=== PATIENT | female | born 1970 | race Caucasian/White ===

== ENCOUNTER → 2020-12-18 | Outpatient (CLI) | payer OTHER ==
[~2020-12-18] MED LIST: ANUSOL-HC CREAM30 GM PR; ATORVASTATIN CA40 MG PO; BUPRENORPHIN-N1 EACH SL; CALCIUM PO; CYCLOBENZAPRINE5 MG PO; FLEXERIL 10 MG10 MG PO; HABITROL 21 MG P1 EA TOP; HAIR, SKIN AND1 EAC3 PO; IBUPROFEN800 MG PO; LOPRESSOR 25 MG25 MG PO; LOVENOX SY80 MG/0.8 SQ; LOVENOX120 MG/0.8 SC; OMEPRAZOLE20 MG PO; ROPINIROLE HC0.25 MG PO; VENTOLIN HFA 66.7 GM INH; VITAMIN D250000 UNIT PO; VITAMIN D5000 UNIT PO
== END ==
LOC: MAMO 07-10 14:00
DX: Z12.31 Encounter for screening mammogram for malignant neoplasm of breast (principal)
CPT/HCPCS: 77063; 77067

== ENCOUNTER 2021-11-19 09:26 | Emergency (ER) | payer OTHER ==
[2021-11-19] MEDS ORDERED: CEPHALEXIN500 M1 PO (22:11)
[2021-11-19] MEDS ORDERED: PREDNISONE 20 M20 MG PO (22:11)
== END 2021-11-19 13:58 | disposition left against medical advice (07) ==
LOC: ER1 09:26
DX: Z53.21 Procedure and treatment not carried out due to patient leaving prior to being seen by health care provider (principal)

== ENCOUNTER 2021-11-19 16:46 | Emergency (ER) | payer OTHER ==
[2021-11-19 18:39] LABS: HEMOGLOBIN 14.1 gm/dl (12.3-15.3); RED BLOOD COUNT 4.54 M/UL (4.00-5.10); WHITE BLOOD COUNT 11.1 K/UL (4.5-11.0)
[2021-11-19 18:59] LABS: BUN/CREATININE RATIO 21 (0-10)
[2021-11-19] MEDS ORDERED: PREDNISONE 20 M20 MG PO (22:11)
[2021-11-19] MEDS ORDERED: CEPHALEXIN500 M1 PO (22:11)
== END 2021-11-19 22:20 | disposition home or self-care (01) ==
LOC: ER1 16:46
PROVIDERS: Physician Assistant
DX: L73.9 Follicular disorder, unspecified (principal); F17.200 Nicotine dependence, unspecified, uncomplicated; Z86.718 Personal history of other venous thrombosis and embolism; Z86.711 Personal history of pulmonary embolism
CPT/HCPCS: 80053; 85025; 85379; 93971; 99284; Q9967

== ENCOUNTER → 2021-12-18 | Outpatient (CLI) | payer OTHER ==
[~2021-12-18] MED LIST changes: +CEPHALEXIN500 M1 PO; +PREDNISONE 20 M20 MG PO
== END ==
LOC: EXRD 12:42
DX: D68.62 Lupus anticoagulant syndrome (principal); R19.5 Other fecal abnormalities; Z79.01 Long term (current) use of anticoagulants; Z79.899 Other long term (current) drug therapy; M85.89 Other specified disorders of bone density and structure, multiple sites
CPT/HCPCS: 77080